=== PATIENT | male | born 1950 | race Caucasian/White ===

== ENCOUNTER 2019-07-02 10:56 | Day surgery (SDC) | payer OTHER ==
[~2019-07-02] VITALS: Ht 185.4 cm; Wt 81.6 kg
--- NOTE | ~2019-07-02 | O ---
[facility] [place] [address] OPERATIVE REPORT Name: HEDY VASQUEZ Room #: DEP [facility].#: [id number] Admission: 07/02/19 Attend Phys: Mario Gonzalez MD Discharge: 07/02/19 Date of : 50 Report #: [id number] THIS REPORT FOR: cc: [place] - No family physician/PCP [place] - No family physician/PCP Mario Gonzalez MD ~ CC: [place] physician/PCP Mario Gonzalez DATE OF SERVICE: 07/02/2019 PREOPERATIVE DIAGNOSIS: Umbilical hernia. POSTOPERATIVE DIAGNOSIS: Umbilical hernia. PROCEDURE PERFORMED: Repair of umbilical hernia with medium Ventralex ST patch. ANESTHESIA: General. SURGEON: Mario Gonzalez MD COMPLICATIONS: None. ESTIMATED BLOOD LOSS: 5 mL. PROCEDURE NOTE: With the patient under general anesthesia, abdomen was prepped and draped in sterile fashion. 0.25% Marcaine was used to anesthetize the skin and subcutaneous tissue. A curvilinear incision was made infraumbilically. The skin of the umbilicus was free from the underlying fat. Part of this was properitoneal fat. This was excised. The hernia sac was opened. Peritoneum only can be visualized. There is nothing inside the hernia sac. Further properitoneal fat was removed. The sac was then closed with 4-0 PDS. The hernia sac was free from the fascia. The hernia sac was then able to be reduced behind the fascia. Properitoneal space was then created using cautery and blunt dissection. Once the properitoneal space was opened up, a medium size Ventralex patch was placed in the properitoneal space. The mesh opened up well. The fascia was then trimmed and then closed with 0 Prolene horizontal mattress fashion x 2. This incorporated the strap of the Ventralex patch. Fascia was closed. The skin of the umbilicus was sewn down to the fascia with 4-0 PDS. Skin was then closed with 5-0 PDS. Mastisol, Steri-Strips applied. A 4 x 4 was placed in the umbilicus for pressure and Op-Site was used for dressing. The patient tolerated the procedure well. By: 26 38 Mario Gonzalez MD /dino
--- NOTE | ~2019-07-02 | H ---
[facility] [place] [address] [place] [address] HISTORY AND PHYSICAL Name: PEDROHEDY Ashwin Room #: PRE [facility] [place] M.R.#: [id number] Admission: Attend Phys: Mario Gonzaelz MD Discharge: Date of : 50 Report #: [id number] THIS REPORT FOR: //name// CC: [facility] physician/PCP Mario Gonzalez PREOPERATIVE DIAGNOSIS: Umbilical hernia. HISTORY OF PRESENT ILLNESS: The patient is a 68-year-old who has umbilical hernia for several years. He is having pain and soreness in this area, also becoming more protuberant. The patient is here for repair of symptomatic umbilical hernia. No history of nausea or vomiting. He was lifting furniture. Also like to garden. Bowels are working, but not regular. Only occasional cough. 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 The patient is here for repair of umbilical hernia. PAST MEDICAL HISTORY: Hyperlipidemia, PTSD, chronic obstructive pulmonary disease, HIV exposure history. MEDICATIONS: Truvada, aspirin. He is also on digoxin, atorvastatin, lorazepam, Breo Ellipta, metoprolol, Ventolin, Singulair, acetaminophen. ALLERGIES: He is not allergic to anything. PAST SURGICAL HISTORY: No prior surgical history. History of heart problem with atrial fibrillation, history of bleeding ulcer. No high blood pressure, no diabetes, no liver disease, no bleeding disorder. FAMILY HISTORY: Nothing runs in the family. SOCIAL HISTORY: He is retired. Does not smoke, does not drink. Does have shortness of breath occasionally. REVIEW OF SYSTEMS: No chest pain. Mild shortness of breath. No muscle weakness, numbness. No nausea or vomiting. PHYSICAL EXAMINATION: GENERAL: The patient is a well-developed thin male, in no acute distress. HEENT: Pupils react to light. Extraocular muscles are intact. NECK: Soft and supple, no masses. LUNGS: Clear to auscultation. HEART: Regular rate and rhythm. No murmur or gallop. ABDOMEN: Soft, nondistended, nontender. He does have a moderate size umbilical hernia. It is reducible. No ascites detected. No mass detected. EXTREMITIES: No cyanosis, clubbing or edema. [facility] [address] [address] HISTORY AND PHYSICAL Name: PEDROHEDY Room #: [facility] M.R.#: [id number] Admission: Attend Phys: Mario Gonzalez MD Discharge: Date of : 50 Report #: [id number] IMPRESSION: The patient is a 68-year-old with symptomatic umbilical hernia. Repair is recommended. Use of mesh was discussed. Risk of the procedure including bleeding, infection, mesh infection, hernia recurrence was discussed. The patient will have this repaired. The patient wishes to proceed. IV antibiotic was readministered. By: 19 Mario Gonzalze MD /nt
[~2019-07-02 10:56] MED LIST: BREO ELLIPTA 21 EACH INH; CHILDREN'S ASPI81 M1 PO; LANOXIN125 MCG PO; LIPITOR40 MG PO; LORAZEPAM 1 MG T1 MG PO; PROAIR HFA8.5 GM INH; TOPROL XL100 MG PO; TRUVADA 200 MG1 EACH PO
[2019-07-02 11:47] VITALS: BP 136/83
[2019-07-02 12:07] LABS: CALCIUM 8.4 mg/dL (8.5-10.1); CREATININE 1.1 mg/dL (0.7-1.3); POTASSIUM 3.8 mmol/L (3.5-5.1)
[2019-07-02] MEDS ORDERED: NORCO 5-325 TA1 EAC1 PO (13:42)
[2019-07-02 13:51] VITALS: BP 136/83
== END 2019-07-02 14:35 | disposition home or self-care (01) ==
LOC: OR 10:56 → TBA 10:57 → OR 12:06
PROVIDERS: Surgery
DX: K42.9 Umbilical hernia without obstruction or gangrene (principal); I10 Essential (primary) hypertension; E78.00 Pure hypercholesterolemia, unspecified; J43.9 Emphysema, unspecified; F41.9 Anxiety disorder, unspecified; I48.91 Unspecified atrial fibrillation; Z98.890 Other specified postprocedural states; Z79.899 Other long term (current) drug therapy; Z87.19 Personal history of other diseases of the digestive system; Z87.891 Personal history of nicotine dependence; Z79.01 Long term (current) use of anticoagulants
CPT/HCPCS: 50010; 50101; 50130; 50386; 50403; 56524; 56525; 62110; 62900; 70005

== ENCOUNTER 2019-11-27 07:58 | Emergency (ER) | payer OTHER ==
[~2019-11-27] VITALS: Ht 185.4 cm; Wt 79.4 kg
[~2019-11-27 07:58] MED LIST changes: +NORCO 5-325 TA1 EAC1 PO
[2019-11-27 08:03] VITALS: BP 119/96
[2019-11-27] MEDS ORDERED: DESCOVY 200-251 EACH PO (08:20)
[2019-11-27] MEDS ORDERED: TRAMADOL 50 MG50 MG PO (08:31)
== END 2019-11-27 08:57 | disposition home or self-care (01) ==
LOC: ER 07:58
DX: L76.22 Postprocedural hemorrhage of skin and subcutaneous tissue following other procedure (principal); I10 Essential (primary) hypertension; J44.9 Chronic obstructive pulmonary disease, unspecified; E78.5 Hyperlipidemia, unspecified; I48.91 Unspecified atrial fibrillation; Z87.891 Personal history of nicotine dependence; Z79.899 Other long term (current) drug therapy

== ENCOUNTER → 2020-10-23 | Outpatient (CLI) | payer OTHER ==
[~2020-10-23] MED LIST changes: +DESCOVY 200-251 EACH PO; +TRAMADOL 50 MG50 MG PO
== END ==
LOC: RAD 10:27
PROVIDERS: ATTEND Internal Medicine
DX: J44.9 Chronic obstructive pulmonary disease, unspecified (principal)

== ENCOUNTER → 2020-11-10 | Outpatient (CLI) | payer OTHER | LOC: CAT 10:09 | PROVIDERS: ATTEND Internal Medicine | DX: Z12.2 Encounter for screening for malignant neoplasm of respiratory organs (principal); R91.8 Other nonspecific abnormal finding of lung field; Z87.891 Personal history of nicotine dependence ==

== ENCOUNTER → 2020-12-05 | Outpatient (CLI) | payer OTHER | LOC: PET 09:22 | PROVIDERS: ATTEND Internal Medicine | DX: R91.8 Other nonspecific abnormal finding of lung field (principal) ==